=== PATIENT | female | born 1960 | race Caucasian/White ===

== ENCOUNTER 2017-09-16 20:20 | Emergency (ER) | payer OTHER ==
[~2017-09-16] VITALS: Ht 157.5 cm; Wt 65.0 kg
[~2017-09-16 20:20] MED LIST: AMARYL1 MG PO; FENOGLIDE120 MG PO; GLUCOPHAGE1000 MG PO; GLUCOPHAGE500 MG/TAB PO; NO HOME MEDICATIONS; NORCO 325 MG-51 TAB PO; PEPCID 20MG TAB20 MG PO; ROXICODONE 55 MG/TAB PO; SOME CHOLESTEROL MED; TRULICITY1.5 MG/0.5 SQ; ZOCOR 20MG20 MG PO
[2017-09-16 20:24] VITALS: TEMP 99
[2017-09-16 21:26] LABS: BASO % 0.5 % (0.0-2.0); EOS % 0.2 % (0-4.0); GRAN # 6.5 (1.4-6.5); GRAN % 75.4 % (42.2-75.2); HEMOGLOBIN 13.4 g/dl (12.5-16.0); LYMPH # 1.6 (1.2-3.4); MEAN CELL VOLUME 89 fl (80.0-100.0); MEAN CORPUSCULAR HEMOGLOBIN 31 pg (27.0-31.0); MEAN CORPUSCULAR HGB CONC 34 g/dl (33.0-37.0); MEAN PLATELET VOLUME 9.9 fl (7.4-10.4); MONO # 0.4 (0.1-0.6); MONO % 4.3 % (1.7-9.3); PLATELET COUNT 167 K/mm3 (130-400); WHITE BLOOD COUNT 8.6 K/mm3 (4.8-10.8)
[2017-09-16 21:58] LABS: ALBUMIN 4.9 gm/dL (3.5-5.0); BILIRUBIN,TOTAL 0.9 mg/dL (0.0-1.0); CALCIUM 9.7 mg/dL (8.4-10.2); CREATININE, serum 0.64 mg/dL (0.52-1.25); POTASSIUM 4.7 mmol/L (3.4-5.0); TOTAL PROTEIN 7.9 gm/dL (6.4-8.2)
[2017-09-16 22:36] LABS: COLLECTION METHOD CLEAN CATCH
[2017-09-16 22:46] LABS: MUCOUS Present /lpf; PH 5 (5-8); SQUAMOUS EPITHELIAL 0-2 /hpf; URINE APPEARANCE Clear; URINE BACTERIA Rare /hpf; URINE BILIRUBIN Negative (NEGATIVE); URINE BLOOD Negative (NEGATIVE); URINE CALCIUM OXALATE CRYSTAL Present /hpf; URINE COLOR Yellow; URINE GLUCOSE 2+ (NEGATIVE); URINE KETONE Trace (NEGATIVE); URINE LEUKOCYTE ESTERASE Negative (NEGATIVE); URINE PROTEIN(semi-quant) Negative (NEGATIVE); URINE UROBILINOGEN Negative (NEGATIVE)
[2017-09-17] MEDS ORDERED: ZOFRAN ODT4 MG PO (01:47)
[2017-09-17] MEDS ORDERED: NORCO 325 MG-51 TAB PO (01:47)
[2017-09-17 02:15] VITALS: BP 109/57; PULSE 83
== END 2017-09-17 02:13 | disposition home or self-care (01) ==
LOC: COL.ER 20:20
PROVIDERS: Emergency Medicine
DX: R10.32 Left lower quadrant pain (principal); R11.10 Vomiting, unspecified; E11.9 Type 2 diabetes mellitus without complications; E78.5 Hyperlipidemia, unspecified; Z90.49 Acquired absence of other specified parts of digestive tract; Z85.72 Personal history of non-Hodgkin lymphomas; Z79.84 Long term (current) use of oral hypoglycemic drugs
CPT/HCPCS: J2765; J3010; J7030; Q9967

== ENCOUNTER → 2018-11-20 | Outpatient (CLI) | payer OTHER ==
[~2018-11-20] MED LIST changes: +ZOFRAN ODT4 MG PO
== END ==
LOC: COL.RAD 07:30
DX: N20.0 Calculus of kidney (principal); R59.0 Localized enlarged lymph nodes; Z85.79 Personal history of other malignant neoplasms of lymphoid, hematopoietic and related tissues
CPT/HCPCS: Q9967

== ENCOUNTER → 2018-11-25 | Outpatient (CLI) | payer OTHER | LOC: COL.RAD 09:44 | DX: M75.121 Complete rotator cuff tear or rupture of right shoulder, not specified as traumatic (principal); Z98.890 Other specified postprocedural states ==

== ENCOUNTER → 2019-09-18 | Outpatient (CLI) | payer OTHER | LOC: MC.RAD 14:45 | DX: Z12.31 Encounter for screening mammogram for malignant neoplasm of breast (principal) ==

== ENCOUNTER 2022-04-27 07:17 | Day surgery (SDC) | payer OTHER ==
[~2022-04-27] VITALS: Ht 157.5 cm; Wt 62.9 kg
[2022-04-27 07:37] VITALS: BP 136/80; PULSE 76; TEMP 98.4
[2022-04-27] MEDS ORDERED: LOFIBRA160 MG PO (07:45)
[2022-04-27] MEDS ORDERED: AMARYL4 MG PO (07:45)
[2022-04-27 09:15] VITALS: BP 128/70; PULSE 70; TEMP 97.3
[2022-04-27 09:30] VITALS: BP 136/74; PULSE 67
--- NOTE | 2022-04-27 09:30 | NUR ---
0912 B 3530 IN TO SPEAK WITH PT, PT DENIES QUESTIONS.
[2022-04-27 09:45] VITALS: BP 134/72; PULSE 67
--- NOTE | 2022-04-27 09:45 | NUR ---
0915B PT RETURNED TO [facility] VIA CART. TRANSFERRED TO CHAIR WITH RN ASSIST. ALERT AND ORIENTED. MONITORS ATTACHED, INTERVALS AND ALARMS SET. VSS. PT DENIES PAIN OR NAUSEA. FOOD AND DRINK PROVIDED. CALL LIGHT IN REACH. SON CALLED FOR RIDE, LEFT MESSAGE. PT CALLED SON FOR RIDE, NO ANSWER. 0930 VSS. PT DENIES DISCOMFORT. TOLERATING FOOD AND DRINK WELL. PT CALLED SON FOR RIDE, NO ANSWER. 0945 VSS. PT DENIES DISCOMFORT. REVIEWED DISCHARGE INSTRUCTIONS AND EDUCATION MATERIAL, ANSWERED ALL QUESTIONS. IV REMOVED WITHOUT COMPLICATIONS. PT ALLOWED TO DRESS. PT CALLED SON FOR RIDE, NO ANSWER.
--- NOTE | 2022-04-27 10:15 | NUR ---
1015 TRANSFERRED PT VIA WHEELCHAIR TO PERSONAL VEHICLE TO BE DRIVEN HOME BY GRANDDAUGHTER.
== END 2022-04-27 10:15 | disposition home or self-care (01) ==
LOC: SDCO 07:17
DX: Z12.11 Encounter for screening for malignant neoplasm of colon (principal); D12.3 Benign neoplasm of transverse colon; D12.0 Benign neoplasm of cecum; K63.5 Polyp of colon; K64.1 Second degree hemorrhoids
CPT/HCPCS: J2704; J7030

== ENCOUNTER 2022-10-09 21:55 | Inpatient (IN) | payer OTHER ==
[~2022-10-09] VITALS: Ht 157.5 cm; Wt 69.0 kg
[~2022-10-09 21:55] MED LIST changes: +AMARYL4 MG PO; +LOFIBRA160 MG PO
[2022-10-09 23:05] LABS: ALBUMIN 3.1 gm/dL (3.4-4.8); CALCIUM 8.8 mg/dL (8.4-10.2); CREATININE, serum 0.9 mg/dL (0.57-1.11); POTASSIUM 4.5 mmol/L (3.5-4.5); TOTAL PROTEIN 6.5 gm/dL (6.2-8.1)
[2022-10-09 23:25] LABS: BASO % 0.3 % (0.0-2.0); GRAN # 8.6 K/mm3 (1.4-6.5); GRAN % 82.1 % (42.2-75.2); LYMPH # 1.2 K/mm3 (1.2-3.4); LYMPH % 11.8 % (20.0-51.0); MEAN CELL VOLUME 93 fl (80.0-100.0); MEAN CORPUSCULAR HGB CONC 33 g/dl (33.0-37.0); MEAN PLATELET VOLUME 10.1 fl (7.4-10.4); MONO # 0.5 K/mm3 (0.1-0.6); MONO % 5.1 % (1.7-9.3); PLATELET COUNT 187 K/mm3 (130-400); RED BLOOD COUNT 2.38 M/mm3 (4.10-5.30); REDCELL DISTRIBUTION WIDTH-CV 14.3 % (11.5-14.5)
[2022-10-09 23:27] LABS: HEMATOCRIT 22.1 % (37.0-47.0); HEMOGLOBIN 7.2 g/dl (12.5-16.0); MEAN CORPUSCULAR HEMOGLOBIN 30 pg (27-31)
[2022-10-09 23:40] LABS: INR 1.6 (0.8-3.0); PROTHROMBIN TIME 18.1 SECONDS (9.7-12.8)
[2022-10-10] VITALS (528 sets, daily range): BP systolic 71–129; BP diastolic 37–73; PULSE 76–105; TEMP 98.9–100; O2SAT 90–100
[2022-10-10 02:02] LABS: HEMATOCRIT 26.1 % (37.0-47.0); HEMOGLOBIN 8.9 g/dl (12.5-16.0)
--- NOTE | 2022-10-10 06:33 | NUR ---
Patient arrived to the floor at 0550 with , vitals taken, head to toe assessment done, hospital policies orientated, call light and personal items within reach, will continue to monitor.
[2022-10-10 06:41] LABS: HEMOGLOBIN 10.3 g/dl (12.5-16.0)
[2022-10-10 06:48] LABS: HEMATOCRIT 30.4 % (37.0-47.0)
[2022-10-10 06:51] LABS: CALCIUM 8.3 mg/dL (8.4-10.2); CREATININE, serum 0.75 mg/dL (0.57-1.11); MAGNESIUM 1.3 mg/dL (1.6-2.6); POTASSIUM 3.9 mmol/L (3.5-4.5)
--- NOTE | 2022-10-10 09:33 | NUR ---
Initial visit: Patient experiencing obvious pain. Two of her family members are with her, comforting her. Industrial Painter wanted to just make them aware of a Industrial Painter being available for her here. Patient didn't feel up to seeing anyone she didn't know. Perhaps when a Deacon from the [employer] comes to offer Holy Communion she will be more comfortable since she is [employer].
--- NOTE | 2022-10-10 10:20 | NUR ---
Pt drowsy, no complaints of pain, just some discomfort in her abd. Pt has had dark loose stool, clots seen. Pt is also incontinent of stool. She is using bedside commode due to weakness. Pt has family in the room. She does speak some uzbek, but family is also helping. Pt going down for EGD, Dr Nelson in recently to talk with her and her family. Pt has not had anything to eat or drink today. Parital dentures removed and in room as well as jewelry off
--- NOTE | 2022-10-10 10:28 | NUR ---
BECKY met with the patient, her son (Santy, ph#[phone]), and daughter (Marii) to discuss discharge plan. The patient was sleeping and primarily speaks Chilean. The patient lives in [place] with her , Dick (ph#[phone]). Marii states that Dick also primarily speaks [place]an, but understands Mohawk. Marii reports that the patient is independent with ADLs and does not have any DME. Her PCP is Dr. Teofilo Broussard and she receives her medications through [facility] mail order and [facility]. Santy and Marii state that the patient does not have a DPOA-HC. They report that the plan is for the patient to return back home with her upon discharge. No additional needs at this time. *Discharge plan: home with *
--- NOTE | 2022-10-10 10:45 | NUR ---
Pt off the floor for EGD
--- NOTE | 2022-10-10 13:05 | NUR ---
PT TRANSFERED VIA STRETCHER FROM PACU. PT WAS ABLE TO STAND UP WHERE WE CHANGED AFTER EPISODE OF BOWEL INCINTINENCE. FAMILY IS BEDSIDE- SON AND DAUGHTER,
[2022-10-10 15:55] LABS: HEMOGLOBIN 9.7 g/dl (12.5-16.0)
--- NOTE | 2022-10-10 17:23 | NUR ---
PT USES CALL LIGHT AND BEDPAN.
[2022-10-10 21:19] LABS: HEMATOCRIT 26.7 % (37.0-47.0); HEMOGLOBIN 9.1 g/dl (12.5-16.0)
[2022-10-11] VITALS (1058 sets, daily range): BP systolic 90–103; BP diastolic 52–62; PULSE 66–74; TEMP 97.7–98.9; O2SAT 78–100
[2022-10-11 06:57] LABS: BASO % 0.7 % (0.0-2.0); EOS # 0.2 K/mm3 (0.0-0.7); EOS % 3.4 % (0.0-4.0); GRAN # 2.9 K/mm3 (1.4-6.5); GRAN % 54.2 % (42.2-75.2); LYMPH # 1.6 K/mm3 (1.2-3.4); LYMPH % 30.1 % (20.0-51.0); MEAN CORPUSCULAR HGB CONC 34 g/dl (33.0-37.0); MEAN PLATELET VOLUME 9.7 fl (7.4-10.4); MONO # 0.6 K/mm3 (0.1-0.6); PLATELET COUNT 136 K/mm3 (130-400); RED BLOOD COUNT 2.89 M/mm3 (4.10-5.30); REDCELL DISTRIBUTION WIDTH-CV 15.4 % (11.5-14.5)
[2022-10-11 06:58] LABS: HEMATOCRIT 25.4 % (37.0-47.0); HEMOGLOBIN 8.6 g/dl (12.5-16.0); MEAN CORPUSCULAR HEMOGLOBIN 30 pg (27-31)
[2022-10-11 06:59] LABS: MEAN CELL VOLUME 88 fl (80.0-100.0)
--- NOTE | 2022-10-11 07:00 | NUR ---
PT RESTING IN BED. PT HAS LR AND OCTREOTIDE RUNNING. VSS EXCEPT SLIGHTLY HYPOTENSIVE IN THE 90'S. PT IN ISOLATION FOR COVID. PT HAS CALL LIGHT AND INSTRUCTED TO CALL WITH ALL NEEDS.
[2022-10-11 07:28] LABS: ALBUMIN 2.5 gm/dL (3.4-4.8); BILIRUBIN,TOTAL 0.7 mg/dL (0.2-1.2); CALCIUM 7.6 mg/dL (8.4-10.2); CREATININE, serum 0.81 mg/dL (0.57-1.11); POTASSIUM 3.6 mmol/L (3.5-4.5); TOTAL PROTEIN 4.9 gm/dL (6.2-8.1)
[2022-10-11 14:09] LABS: HEMATOCRIT 25.3 % (37.0-47.0); HEMOGLOBIN 8.7 g/dl (12.5-16.0)
--- NOTE | 2022-10-11 16:46 | NUR ---
SW contacted the patients son Santy ([phone]) due to the patient being Covid +. Per family, patient lives at home with her Dick. She is fully independent with her ADL's and IADL's at home and does not utilize any home oxygen. PCP is and she obtains her medications through [facility]. Per Santy, the patient does not have a DPOA-HC established at this time.
[2022-10-11 17:27] LABS: HEPATITIS B CORE AB,TOTAL Negative (Negative); HEPATITIS B SURFACE ANTIBODY <2.0 (()); HEPATITIS B SURFACE ANTIGEN Negative (Negative); HEPATITIS C VIRUS ANTIBODY Negative (Negative)
--- NOTE | 2022-10-11 19:55 | NUR ---
RECEIVED REPORT FROM DAY SHIFT NURSE. PT IS RESTING IN BED AND PT'S VITALS ARE STABLE AT THIS TIME.
[2022-10-12] VITALS (1204 sets, daily range): BP systolic 81–104; BP diastolic 50–56; PULSE 69–76; TEMP 98.4–99.7; O2SAT 89–100
[2022-10-12 05:19] LABS: CERULOPLASMIN 21 mg/dL (20-60)
[2022-10-12 05:38] LABS: HEPATITIS AB (HAV) IGG INDEX 12.65 Index (<=1.00)
--- NOTE | 2022-10-12 06:31 | NUR ---
PT HAS BEEN SLEEPING MOST OF THE NIGHT. BP HAS BEEN MONITORED THROUGHOUT THE NIGHT. OTHER VITALS HAVE BEEN STABLE THROUHGOUT THE NIGHT. PT HAD A HEADACHE AT THE BEGINNING OF THE SHIFT AND WAS GIVEN PAIN MEDICATION AND GAVE POSITIVE FEEDBACK. WILL GIVE REPORT TO DAY SHIFT NURSE.
[2022-10-12 06:33] LABS: BASO # 0.1 K/mm3 (0.0-0.2); BASO % 0.8 % (0.0-2.0); EOS # 0.3 K/mm3 (0.0-0.7); EOS % 4.2 % (0.0-4.0); GRAN # 3.7 K/mm3 (1.4-6.5); LYMPH # 1.5 K/mm3 (1.2-3.4); LYMPH % 23.8 % (20.0-51.0); MEAN CELL VOLUME 92 fl (80.0-100.0); MEAN CORPUSCULAR HGB CONC 33 g/dl (33.0-37.0); MEAN PLATELET VOLUME 9.9 fl (7.4-10.4); MONO # 0.9 K/mm3 (0.1-0.6); MONO % 13.4 % (1.7-9.3); PLATELET COUNT 147 K/mm3 (130-400); REDCELL DISTRIBUTION WIDTH-CV 15.5 % (11.5-14.5)
[2022-10-12 06:37] LABS: HEMATOCRIT 25.7 % (37.0-47.0); HEMOGLOBIN 8.4 g/dl (12.5-16.0); MEAN CORPUSCULAR HEMOGLOBIN 30 pg (27-31)
[2022-10-12 06:47] LABS: ALBUMIN 2.4 gm/dL (3.4-4.8); CALCIUM 7.6 mg/dL (8.4-10.2); CREATININE, serum 0.73 mg/dL (0.57-1.11); MAGNESIUM 1.5 mg/dL (1.6-2.6); PHOSPHOROUS 3.7 mg/dL (2.3-4.7); POTASSIUM 3.6 mmol/L (3.5-4.5)
--- NOTE | 2022-10-12 09:25 | NUR ---
BEDSIDE REPORT RECEIVED FROM LUKAS PENA. PT RESTING IN BED, VSS. DRIPS INFUSING ORDERED, IV SITE WNL. PT DENIES NEEDS AT THIS TIME, CALL LIGHT IN REACH.
[2022-10-12 15:41] LABS: HEMATOCRIT 24.5 % (37.0-47.0); HEMOGLOBIN 8.2 g/dl (12.5-16.0)
--- NOTE | 2022-10-12 19:45 | NUR ---
RECEIVED REPORT FROM DAY SHIFT NURSE. PT IS LYING IN BED. PT'S VITALS ARE STABLE AT THIS TIME.
[2022-10-13] VITALS (702 sets, daily range): BP systolic 83–122; BP diastolic 52–80; PULSE 60–72; TEMP 97.5–98.9; O2SAT 75–100
[2022-10-13 06:06] LABS: BASO # 0.1 K/mm3 (0.0-0.2); BASO % 0.9 % (0.0-2.0); EOS # 0.3 K/mm3 (0.0-0.7); EOS % 4.7 % (0.0-4.0); GRAN # 2.9 K/mm3 (1.4-6.5); GRAN % 52.4 % (42.2-75.2); LYMPH # 1.7 K/mm3 (1.2-3.4); LYMPH % 29.7 % (20.0-51.0); MEAN CELL VOLUME 95 fl (80.0-100.0); MEAN CORPUSCULAR HGB CONC 32 g/dl (33.0-37.0); MEAN PLATELET VOLUME 9.9 fl (7.4-10.4); MONO # 0.7 K/mm3 (0.1-0.6); MONO % 11.8 % (1.7-9.3); PLATELET COUNT 137 K/mm3 (130-400); RED BLOOD COUNT 2.63 M/mm3 (4.10-5.30); REDCELL DISTRIBUTION WIDTH-CV 15.1 % (11.5-14.5)
[2022-10-13 06:11] LABS: HEMATOCRIT 24.9 % (37.0-47.0); MEAN CORPUSCULAR HEMOGLOBIN 30 pg (27-31)
[2022-10-13 06:28] LABS: ALBUMIN 2.3 gm/dL (3.4-4.8); CALCIUM 7.4 mg/dL (8.4-10.2); CREATININE, serum 0.74 mg/dL (0.57-1.11); MAGNESIUM 1.5 mg/dL (1.6-2.6); PHOSPHOROUS 3.3 mg/dL (2.3-4.7); POTASSIUM 3.8 mmol/L (3.5-4.5)
--- NOTE | 2022-10-13 06:45 | NUR ---
PT HAS HAD AN UNEVENTFUL NIGHT. VITALS HAVE BEEN STABLE THROUGHOUT THE SHIFT. WILL GIVE REPORT TO DAY SHIFT NURSE.
--- NOTE | 2022-10-13 11:13 | NUR ---
POSSIBLE DISCHARGE TODAY. WILL REVIEW WITH HOSPITALIST.
--- NOTE | 2022-10-13 11:58 | NUR ---
PT STANDING IN ROOM AND AND WALKING AROUND TO STRETCH.
--- NOTE | 2022-10-13 12:38 | NUR ---
PER DR SAUL, PT TO STAY TO MONITOR HGB. RECHECK IN THE AM.
[2022-10-13] MEDS ORDERED: PROTONIX 40MG T40 MG PO (13:07)
[2022-10-13 17:01] LABS: HEMATOCRIT 25.8 % (37.0-47.0); HEMOGLOBIN 8.8 g/dl (12.5-16.0)
--- NOTE | 2022-10-13 21:45 | NUR ---
RECEIVED REPORT FROM DAY SHIFT NURSE. PT IS UP IN THE ROOM INDEPENDENTLY. PT'S VITALS ARE STABLE AT THIS TIME.
[2022-10-14] VITALS (7 sets, daily range): BP systolic 103–121; BP diastolic 62–71; PULSE 67–74; TEMP 98.4–98.7; O2SAT 99–100
[2022-10-14 06:39] LABS: BASO # 0.1 K/mm3 (0.0-0.2); BASO % 0.9 % (0.0-2.0); EOS # 0.2 K/mm3 (0.0-0.7); EOS % 3.8 % (0.0-4.0); GRAN # 3.6 K/mm3 (1.4-6.5); GRAN % 64.2 % (42.2-75.2); LYMPH # 1.1 K/mm3 (1.2-3.4); MEAN CELL VOLUME 91 fl (80.0-100.0); MEAN CORPUSCULAR HGB CONC 34 g/dl (33.0-37.0); MEAN PLATELET VOLUME 10.2 fl (7.4-10.4); MONO # 0.6 K/mm3 (0.1-0.6); MONO % 10.6 % (1.7-9.3); PLATELET COUNT 150 K/mm3 (130-400); RED BLOOD COUNT 2.82 M/mm3 (4.10-5.30); REDCELL DISTRIBUTION WIDTH-CV 15.6 % (11.5-14.5)
--- NOTE | 2022-10-14 06:41 | NUR ---
PT HAS HAD AN UNEVENTFUL NIGHT. PT'S VITALS HAVE BEEN STABLE THROUGHOUT THE SHIFT. WILL GIVE REPORT TO DAY SHIFT NURSE.
[2022-10-14 06:47] LABS: HEMATOCRIT 25.7 % (37.0-47.0); HEMOGLOBIN 8.6 g/dl (12.5-16.0); MEAN CORPUSCULAR HEMOGLOBIN 30 pg (27-31)
[2022-10-14 06:53] LABS: ALBUMIN 2.7 gm/dL (3.4-4.8); CALCIUM 8.1 mg/dL (8.4-10.2); CREATININE, serum 0.72 mg/dL (0.57-1.11); MAGNESIUM 1.5 mg/dL (1.6-2.6); PHOSPHOROUS 3.1 mg/dL (2.3-4.7); POTASSIUM 4.1 mmol/L (3.5-4.5)
[2022-10-14] MEDS ORDERED: TESSALON P100 MG/CAP PO (11:15)
--- NOTE | 2022-10-14 11:27 | NUR ---
PT LEAVING UNIT WITH FAMILY. ALL DISCHARGE INSTRUCITONS GIVEN AND PAPERS SIGNED. ROOM LOOKED OVER FOR ALL BELONGINGS.
[2022-10-15 11:24] LABS: ANTISMOOTH MUSCLE ANTIBODY Negative (Negative)
== END 2022-10-14 12:06 | disposition home or self-care (01) | DRG 377 ==
LOC: COL.ER 21:55 → SURG 10-10 01:32 → ICU 10-10 01:32
PROVIDERS: Emergency Medicine; Internal Medicine; Internal Medicine Gastroenterology; Student in an Organized Health Care Education/Training Program; ADMIT Internal Medicine
PROC: 30233N1 Transfusion of Nonautologous Red Blood Cells into Peripheral Vein, Percutaneous Approach (ICD-10-PCS; 2022-10-10)
PROC: 0DB68ZX Excision of Stomach, Via Natural or Artificial Opening Endoscopic, Diagnostic (ICD-10-PCS; 2022-10-10)
PROC: 06L38CZ Occlusion of Esophageal Vein with Extraluminal Device, Via Natural or Artificial Opening Endoscopic (ICD-10-PCS; principal; 2022-10-10 11:00)
DX: K29.31 Chronic superficial gastritis with bleeding (principal); U07.1 COVID-19; K76.6 Portal hypertension; K25.4 Chronic or unspecified gastric ulcer with hemorrhage; E11.9 Type 2 diabetes mellitus without complications; I85.00 Esophageal varices without bleeding; E78.5 Hyperlipidemia, unspecified; I95.9 Hypotension, unspecified; E78.1 Pure hyperglyceridemia; D50.0 Iron deficiency anemia secondary to blood loss (chronic); B96.81 Helicobacter pylori [H. pylori] as the cause of diseases classified elsewhere; G43.009 Migraine without aura, not intractable, without status migrainosus; F32.A Depression, unspecified; Z79.84 Long term (current) use of oral hypoglycemic drugs; Z90.49 Acquired absence of other specified parts of digestive tract; Z85.72 Personal history of non-Hodgkin lymphomas; Z23 Encounter for immunization; Z98.890 Other specified postprocedural states; Z92.21 Personal history of antineoplastic chemotherapy; Z87.442 Personal history of urinary calculi
CPT/HCPCS: C9113; J0696; J1756; J1815; J2270; J2354; J2405; J2704; J3475; J3480; J7030; J7040; J7120; P9016; Q9967

== ENCOUNTER 2022-11-16 10:10 | Day surgery (SDC) | payer OTHER ==
[~2022-11-16] VITALS: Ht 157.5 cm; Wt 64.5 kg
[~2022-11-16 10:10] MED LIST changes: +PROTONIX 40MG T40 MG PO; +TESSALON P100 MG/CAP PO
[2022-11-16] MEDS ORDERED: PRILOSEC 20MG20 MG PO (12:12)
[2022-11-16 12:37] VITALS: BP 134/76; PULSE 76; TEMP 97.3
[2022-11-16 12:52] VITALS: BP 128/67; PULSE 72
[2022-11-16 13:07] VITALS: BP 136/79; PULSE 76
[2022-11-16 13:22] VITALS: BP 130/74; PULSE 68
[2022-11-16 13:30] VITALS: BP 119/68; PULSE 78; TEMP 97.5
--- NOTE | 2022-11-16 13:30 | NUR ---
1237 RETURNS TO ROOM 7 PER CART. AWAKE, ALERT. RESP UNLABORED. AMBULATES TO RECLINER WITH STAND BY ASSIST. DENIES NAUSEA, ABD/CHEST PAIN, OR DYSPHAGIA. VITAL SIGNS OBTAINED. CALL LIGHT AT SIDE. DAUGHTERS IN ROOM. 1245 TOLERATES PO JUICE AND APPLESAUCE WITHOUT NAUSEA. 1251 DR. HILARIO HERE TO VISIT WITH PATIENT. 1310 DISCHARGE INSTRUCTIONS REVIEWED WITH PATIENT AND DAUGHTERS VERBALIZING UNDERSTANDING. COPY PROVIDED IN DISCHARGE FOLDER. 1325 DRESSES SELF. DAUGHTER IN ROOM
== END 2022-11-16 13:32 | disposition home or self-care (01) ==
LOC: SDCO 10:10
DX: K76.6 Portal hypertension (principal); I85.10 Secondary esophageal varices without bleeding; B96.81 Helicobacter pylori [H. pylori] as the cause of diseases classified elsewhere; K25.9 Gastric ulcer, unspecified as acute or chronic, without hemorrhage or perforation; U07.1 COVID-19; K29.70 Gastritis, unspecified, without bleeding; E11.9 Type 2 diabetes mellitus without complications; Z79.84 Long term (current) use of oral hypoglycemic drugs
CPT/HCPCS: J2704; J3010

== ENCOUNTER 2023-01-18 06:36 | Day surgery (SDC) | payer OTHER ==
[~2023-01-18] VITALS: Ht 154.9 cm; Wt 67.0 kg
[2023-01-18] VITALS (7 sets, daily range): BP systolic 124–138; BP diastolic 66–78; PULSE 71–82; TEMP 97.2–97.6
[~2023-01-18 06:36] MED LIST changes: +PRILOSEC 20MG20 MG PO
--- NOTE | 2023-01-18 09:33 | NUR ---
0812- PATIENT RETURNS [place] [facility]IA C[facility]. PT AWAKE AND ALERT. RESPIRATIONS UNLABORED. AMBULATED TO RECLINER CHAIR WITH 2:1 SBA. PT DENIES NAUSEA. PT C/O 04/15 ABD PAIN. VERBAL ORDER RECIEVED FROM DR. HILARIO FOR A ONE TIME IV PAIN MED- SEE DEC FOR DETAILS. HOOKED UP TO MONITOR AND VS OBTAINED. CALL LIGHT AT SIDE AND FAMILY PRESENT. 0817- PATIENT TOLERATING DRINK WITHOUT NAUSEA OR DIFFICULTY SWALLOWING. 0840- DR. HILARIO IN ROOM SPEAKING WITH PATIENT. 0902- D/C INSTRUCTIONS REVIEWED WITH PATIENT. PT VERBALIZED UNDERSTANDING AND A COPY OF INSTRUCTIONS PROVIDED IN D/C FOLDER. 0926- PT DRESSES SELF WITH SUPERVISION FROM DAUGHTER. 0933- PT. PAIN LEVEL REPORTED TO BE IMPROVED AT A 2/10. PATIENT DISCHARGED FROM UNIT VIA W/C TO A PERSONAL VEHICLE. PT LEFT HOSPITAL IN STABLE CONDITION.
== END 2023-01-18 09:33 | disposition home or self-care (01) ==
LOC: SDCO 06:36
DX: I85.10 Secondary esophageal varices without bleeding (principal); K74.69 Other cirrhosis of liver; K31.89 Other diseases of stomach and duodenum; K29.70 Gastritis, unspecified, without bleeding; Z86.19 Personal history of other infectious and parasitic diseases
CPT/HCPCS: J2704; J3010; J7120

== ENCOUNTER 2023-09-06 09:20 | Day surgery (SDC) | payer OTHER ==
[~2023-09-06] VITALS: Ht 152.4 cm; Wt 65.0 kg
--- NOTE | 2023-09-06 10:40 | NUR ---
0821 PT AMBULATORY TO [facility] WITH A STEADY GAIT, BREATHING EVEN AND UNLABORED. PT IS ALERT AND ORIENTED. CONSENTS REVIEWED WITH PATIENT AND PT SIGNED. IV ESTABLISHED. LR INFUSING VIA GRAVITY AT [facility]. CALL LIGHT IN REACH. WARM BLANKET PROVIDED.
[2023-09-06 10:52] VITALS: BP 118/65; PULSE 71; TEMP 98.6
--- NOTE | 2023-09-06 10:56 | NUR ---
0950 PT AMBULATORY TO [facility] WITH A STEADY GAIT, BREATHING AND UNLABORED. PT IS ACCOMPANIED BY HER DAUGHTER, [place], WHO PT REQUESTS TRANSLATES FOR HER TODAY. SERVICE UNIT OPERATOR [employer], GISELLA, # [id number], PROVIDED TRANSLATION SO THAT INFORMED REFUSAL OF INTERPRETIVE SERVICES COULD BE REVIEWED AND SIGNED BY PT. CONSENT FOR EGD AND ANETHESIA REVIEWED WITH PT BY HER DAUGHTER AND SIGNED BY PT. IV ESTABLISHED, LR INFUSING VIA GRAVITY AT [facility]. CALL LIGHT IN REACH. WARM BLANKET PROVIDED.
[2023-09-06 11:25] VITALS: BP 121/74; PULSE 70; TEMP 98.4
[2023-09-06 11:40] VITALS: BP 125/73; PULSE 72
[2023-09-06 11:55] VITALS: BP 110/68; PULSE 70
[2023-09-06 12:10] VITALS: BP 121/61; PULSE 72
--- NOTE | 2023-09-06 12:20 | NUR ---
1125 RETURNS TO ROOM 6 PER CART. DROWSY, AROUSES SPONTANEOUSLY. RESP UNLABORED. DENIES ABD/CHEST PAIN, NAUSEA OR DYSPHAGIA. VITAL SIGNS OBTAINED. FEET ELEVATED. CALL LIGHT AT SIDE. DAUGHTER IN ROOM; ASSISTS WITH TRANSLATE 1140 AWAKE, ALERT. TOLERATES PO JUICE AND PUDDING WITH NAUSEA. SWALLOWS WITHOUT DIFFICULTY 1150 DR. HILARIO HERE TO VISIT WITH PATIENT AND DAUGHTER 1200 DISCHARGE INSTRUCTIONS REVIEWED WITH PATIENT AND DAUGHTER. DAUGHTER TRANSLATES SOME WITH MOTHER 1215 DRESSES SELF
== END 2023-09-06 12:21 | disposition home or self-care (01) ==
LOC: SDCO 09:20
DX: I85.00 Esophageal varices without bleeding (principal); K29.70 Gastritis, unspecified, without bleeding; K76.6 Portal hypertension; K74.69 Other cirrhosis of liver
CPT/HCPCS: J2704; J7120

== ENCOUNTER 2023-10-25 09:30 | Day surgery (SDC) | payer OTHER ==
[~2023-10-25] VITALS: Ht 157.5 cm; Wt 65.8 kg
[~2023-10-25 09:30] MED LIST changes: +LR 1,000 ML IV SCH; +Ondansetron 4 MG/2 ML VIAL IV PRN
[2023-10-25] MEDS ORDERED: VITAMIN D3400 I1 PO (10:36)
[2023-10-25 10:39] VITALS: BP 131/78; PULSE 69; TEMP 99.2
--- NOTE | 2023-10-25 10:41 | NUR ---
PATIENT ADMITTED TO [facility] AMBULATORY. DAUGHTER WITH PATIENT. PATIENT DOES SPEAK CITIZEN OF [place] AND IS ABLE TO GIVE HISTORY.
[2023-10-25] MEDS ORDERED: Lidocaine PF 2% (20 MG/ML) 5 ML VIAL ONE (10:45)
[2023-10-25 11:30] VITALS: BP 129/71; PULSE 68; TEMP 98.7
[2023-10-25 11:45] VITALS: BP 118/71; PULSE 68
[2023-10-25 12:00] VITALS: BP 122/68; PULSE 70
--- NOTE | 2023-10-25 12:15 | NUR ---
1130 RETURNS TO ROOM 4 PER CART. DROWSY, AROUSES SPONTANEOUSLY. RESP UNLABORED. AMBULATES TO RECLINER WITH STANDBY ASSIST. DENIES ABD/CHEST PAIN, NAUSEA OR DYSPHAGIA. VITAL SIGNS OBTAINED. CALL LIGHT AT SIDE. DAUGHTER IN ROOM 1145 TOLERATES PO JUICE AND PUDDING WITHOUT NAUSEA. SWALLOWS WITHOUT DIFFICULTY 1155 DR. HILARIO HERE TO VISIT WITH PATIENT 1200 DISCHARGE INSTRUCTIONS REVIEWED. PATIENT AND DAUGHTER VERBALIZE UNDERSTANDING. COPY PROVIDED IN DISCHARGE FOLDER 120 DRESSES SELF.
== END 2023-10-25 12:15 | disposition home or self-care (01) ==
LOC: SDCO 09:30
DX: K74.69 Other cirrhosis of liver (principal); I85.10 Secondary esophageal varices without bleeding; K29.70 Gastritis, unspecified, without bleeding
CPT/HCPCS: J2704; J7120

== ENCOUNTER 2024-05-15 07:18 | Day surgery (SDC) | payer OTHER ==
[~2024-05-15] VITALS: Ht 157.5 cm; Wt 65.7 kg
[~2024-05-15 07:18] MED LIST changes: -LR 1,000 ML IV SCH; +VITAMIN D3400 I1 PO
[2024-05-15] MEDS ORDERED: Lidocaine PF 2% (20 MG/ML) 5 ML VIAL ONE (07:30)
[2024-05-15] MEDS ORDERED: Glycopyrrolate 0.2 MG/ML 1 ML VIAL ONE (07:32)
[2024-05-15] MEDS ORDERED: NS 1,000 ML IV SCH (08:15)
--- NOTE | 2024-05-15 09:05 | NUR ---
0840 RETURN TO ROOM 4 PER CART. AWAKE, ALERT. AMBULATES TO RECLINER WITH STAND BY ASSIST. DENIES DISCOMFORT OR DYSPHAGIA. VITAL SIGNS OBTAINED. CALL LIGHT AT SIDE. DAUGHTER HERE 0842 DR. HILARIO HERE TO VISIT WITH PATIENT 0852 TOLERATES PO JUICE AND PUDDING WITHOUT NAUSEA. SWALLOWS WITHOUT DIFFICULTY. DISCHARGE INSTRUCTIONS REVIEWED. PATIENT AND DAUGHTER VERBALIZE UNDERSTANDING. COPY PROVIDED IN DISCHARGE FOLDER. 0900 DRESSES SELF
[2024-05-15 14:17] VITALS: BP 130/67; PULSE 60; TEMP 98.5
[2024-05-15] MEDS ORDERED: OZEMPIC0.25 MG/02 SQ (14:22)
[2024-05-15] MEDS ORDERED: VITAMIN D 50,1.25 MG PO (14:22)
== END 2024-05-15 09:05 | disposition home or self-care (01) ==
LOC: SDCO 07:18
DX: K74.60 Unspecified cirrhosis of liver (principal); I85.10 Secondary esophageal varices without bleeding; K29.70 Gastritis, unspecified, without bleeding; K76.6 Portal hypertension
CPT/HCPCS: J2704; J7030

== ENCOUNTER 2024-07-03 13:37 | Outpatient (CLI) | payer OTHER ==
[~2024-07-03] VITALS: Ht 157.5 cm; Wt 64.7 kg
[~2024-07-03 13:37] MED LIST changes: +OZEMPIC0.25 MG/02 SQ; -Ondansetron 4 MG/2 ML VIAL IV PRN; +VITAMIN D 50,1.25 MG PO
[2024-07-03 14:00] VITALS: BP 107/58; PULSE 72; TEMP 98.2
[2024-07-03] MEDS ORDERED: NS 250 ML IV ONE (14:00)
== END 2024-07-03 14:51 ==
LOC: EUO 13:37
DX: M81.0 Age-related osteoporosis without current pathological fracture (principal)
CPT/HCPCS: J3489